=== PATIENT | male | born 1960 | race Two or more races ===

== ENCOUNTER 2024-10-14 06:30 | Emergency (ER) | payer BC, OTHER ==
[~2024-10-14] VITALS: Ht 162.6 cm; Wt 59.0 kg
[2024-10-14] MEDS ORDERED: TDAP [DIPH/PERTUSSIS/TET] 0.5 ML VIAL IM ONE (06:46)
[2024-10-14] MEDS ORDERED: BACI/NEOM/POLY B OINT PKT 1 UDPKT PACKET ONE (06:46)
[2024-10-14] MEDS: TDAP [DIPH/PERTUSSIS/TET] 0.5 ML VIAL IM ONE (06:52)
[2024-10-14] MEDS: BACI/NEOM/POLY B OINT PKT 1 UDPKT PACKET TP ONE (07:01)
[2024-10-14] MEDS ORDERED: IBUP-1955 PO (08:07)
[2024-10-14 08:29] VITALS: BP 145/76; TEMP 98; O2SAT 99
== END 2024-10-14 08:30 | disposition home or self-care (01) ==
LOC: ER 06:32
DX: S00.03XA Contusion of scalp, initial encounter (principal); S00.81XA Abrasion of other part of head, initial encounter; F17.200 Nicotine dependence, unspecified, uncomplicated; Z60.2 Problems related to living alone; V89.2XXA Person injured in unspecified motor-vehicle accident, traffic, initial encounter; Y93.89 Activity, other specified; Y92.488 Other paved roadways as the place of occurrence of the external cause; Y99.8 Other external cause status
CPT/HCPCS: 70450-TC; 70486-TC; 90715